=== PATIENT | female | born 1950 | race Caucasian/White ===

== ENCOUNTER 2021-03-12 14:03 | Outpatient (RCR) | payer BC, SELFPAY | END 2021-03-28 09:08 | disposition home or self-care (01) | LOC: HO.WCC 14:03 | PROVIDERS: PCP Family Medicine; Visit Provider Physician Assistant | DX: I87.332 Chronic venous hypertension (idiopathic) with ulcer and inflammation of left lower extremity (principal); L97.821 Non-pressure chronic ulcer of other part of left lower leg limited to breakdown of skin | CPT/HCPCS: 99213 ==

== ENCOUNTER 2021-04-10 10:30 | Outpatient (REF) | payer BC, SELFPAY ==
--- NOTE | ~2021-04-10 | US_ITS ---
EXAMINATION: LEFT LOWER EXTREMITY VENOUS ULTRASOUND (Reflux Exam) CLINICAL INDICATION: leg pain and varicose veins. COMPARISON: None. TECHNIQUE: Color flow triplex imaging and compression Doppler was performed to evaluate both the deep and the superficial systems bilaterally. To evaluate the superficial system, the examination was performed in the upright position. Color-flow Doppler ultrasound and compression ultrasound were utilized. In addition, maneuvers were utilized to demonstrate reflux. FINDINGS: DEEP VENOUS ULTRASOUND OF THE LEFT LOWER EXTREMITY: Respiratory variation, normal compression and augmented flow are noted in the left common femoral vein as well as the left popliteal vein and there is no evidence of deep venous thrombosis at these locations. There is 0.9 seconds reflux in the popliteal vein. There is no evidence of reflux in the deep system in either the common femoral vein or the mid femoral vein. . There is no evidence of a Pete's cyst. SUPERFICIAL ULTRASOUND WITH DOPPLER OF LEFT LOWER EXTREMITY: Left great saphenous vein at the saphenofemoral junction measures 8 mm, at the mid thigh 4 mm, [id number] 4 mm, [id number] 3 mm, at mid calf 2 mm and at the ankle measures 1 mm. There is left greater saphenous vein reflux from the knee to the calf measuring maximum 2.2 seconds reflux in the calf. There is a lateral accessory greater saphenous vein that measures 3 to 4 mm and does not demonstrate reflux. The left small saphenous vein measures 2-6 mm and shows no reflux. There is a varicosity in the distal calf that measures 3 mm and does not demonstrate reflux. US/US venous duplex LE LT IMPRESSION: Deep venous reflux in the left popliteal vein. No evidence of DVT. Left greater saphenous vein reflux.
== END 2021-04-10 10:31 | disposition home or self-care (01) ==
LOC: HO.US 10:30
PROVIDERS: Visit Provider Physician Assistant
DX: I87.332 Chronic venous hypertension (idiopathic) with ulcer and inflammation of left lower extremity (principal)
CPT/HCPCS: 93971

== ENCOUNTER 2023-07-04 15:47 | Outpatient (AMB) | payer MEDICARE, SELFPAY ==
--- NOTE | 2023-07-04 16:01 | MHC.OFFWIV ---
Intake Vital Signs 07/04/23 16:05 Weight 265 lb BP 128/74 Blood Pressure Location Rt brachial Position Sitting Pulse 78 Pulse Source Pulse Oximeter Temp 97.9 F Temp Source Temporal Artery Scan Pulse Oximetry (%) 98 Intake Visit Reasons: EP, minor cut on nose Intake Note: pt is here for cut on nose due to car door Patient Tobacco Use Status: Never used Tobacco Allergies azithromycin Allergy (Mild, Verified 07/04/23 16:05) Vomiting Do you need a note to return to daycare/school/sports/work: No HPI HPI Comments History of Present Illness Details This is a 72-year-old female who presents to the office today for sick visit. Patient complaining of a small cut on the bridge of her nose. Patient states she hit herself in the nose with the door when opening the door this morning. She denies any headaches, nausea/vomiting, photophobia, or phonophobia. PFSH Social History Patient Tobacco Use Status: Never used Tobacco Review of Systems Const All systems reviewed & are unremarkable except as noted in HPI and below Reports no additional complaints Eyes Reports no additional complaints ENT Reports no additional complaints Card Reports no additional complaints Resp Reports no additional complaints GI Reports no additional complaints Reports no additional complaints Musc Reports no additional complaints Skin/Breast Reports system reviewed and no additional complaints, except as documented Neuro Reports no additional complaints Psych Reports no additional complaints Endo Reports no additional complaints Walter/Lymph Reports no additional complaints Aller/Immun Reports no additional complaints Physical Exam Vital Signs: Last Vital Signs Temp 97.9 F 07/04/23 16:05 Pulse 78 07/04/23 16:05 BP 128/74 07/04/23 16:05 Pulse Ox 98 07/04/23 16:05 Const General: cooperative, healthy appearing, no acute distress and well developed Orientation/consciousness: patient oriented x3 HEENT Other: Very small linear abrasion noted to the bridge of her nose without purulent or bloody drainage or surrounding erythema. Mild tenderness to palpation at the bridge of her nose with the abrasion is located. No nasal deformity per patient. Head: Yes normal to inspection Ears: hearing grossly normal bilaterally Mouth: Normal oral and palatal mucosa present Eyes General: appearance normal, both eyes and all related structures Pupils: Equal, round and reactive pupils present EOM: EOMs intact bilaterally Resp Effort & Inspection: normal respiratory effort and no respiratory distress Auscultation: clear to auscultation bilaterally Cardio Rate: regular rate Rhythm: regular rhythm Heart sounds: no gallops, no murmurs and no rubs Peripheral pulses: Peripheral pulses 2+ throughout GI Inspection: No distended Palpation (GI): Soft to palpation and nontender Auscultation: normal bowel sounds Skin General skin exam: no rashes or lesions noted Neuro General: patient oriented x3 Cranial nerves: Yes CN's II-XII intact bilaterally and Yes Equal, round and reactive pupils present Gait exam (Neuro): Normal gait present Motor exam (neuro): 5/5 motor strength present throughout Extrem General: Yes normal to inspection, Yes full ROM and Yes no clubbing, cyanosis or edema Psych Appearance: grossly normal Mental Status: mental status grossly normal Assessment & Plan Assessment & Plan (1) Abrasion of nose: Code(s): S00.31XA - Abrasion of nose, initial encounter Plan: This is a 72-year-old female who presents to the office complaining of a minor cut to her nose. On physical examination there is a very small linear abrasion of the bridge of her nose. The wound is well-approximated and does not separate, there are no skin flaps. There is no active bleeding. No indication for suture placement as this is a minor abrasion rather than a laceration. Patient was advised to clean the area with soap and water followed by bacitracin followed by a bandage. Patient does not currently utilize anticoagulants. She is neurologically intact. No indication for head imaging at this time. She was advised to follow-up here or go to the emergency room if she were to develop headaches, nausea/vomiting, or photophobia/phonophobia. Patient verbalized her understanding and she is in agreement with the plan. Coding Level of Care Code Est Pt Level 3 (26091) Diagnoses Abrasion of nose S00.31XA
[2023-07-04 16:05] VITALS: BP 128/74; PULSE 78; TEMP 36.6; O2SAT 98
== END 2023-07-04 16:49 | disposition home or self-care (01) ==
PROVIDERS: PCP Internal Medicine; Visit Provider Physician Assistant Medical
DX: S00.31XA Abrasion of nose, initial encounter (principal)
CPT/HCPCS: 99213